=== PATIENT | male | born 1980 | race Caucasian/White ===

== ENCOUNTER 2020-12-07 20:51 | Emergency (ER) | payer OTHER ==
[~2020-12-07 20:51] MED LIST: ALDACTONE100 MG PO; CATAPRES 0.1MG0.1 MG PO; HYDRALAZINE HCL50 MG PO; KLONOPIN TAB 00.5 MG PO; LASIX40 MG PO; MEDROL DOSEPAK 24 MG PO; NEURONTIN 300300 MG PO; NORVASC 5 MG TAB5 MG PO; OMEPRAZOLE40 MG PO; TOPROL XL100 MG PO; TYLENOL 500 MG500 MG PO
[2020-12-07 21:52] LABS: HEMOGLOBIN 8.3 gm/dl (14.0-17.5); RED BLOOD COUNT 2.87 M/UL (4.20-5.50)
== END 2020-12-08 01:13 | disposition home or self-care (01) ==
LOC: ER1 20:51
PROVIDERS: Emergency Medicine
DX: R06.02 Shortness of breath (principal); R60.0 Localized edema; I10 Essential (primary) hypertension; J44.9 Chronic obstructive pulmonary disease, unspecified; F17.200 Nicotine dependence, unspecified, uncomplicated; Z99.2 Dependence on renal dialysis; Z20.822 Contact with and (suspected) exposure to COVID-19
CPT/HCPCS: 0240U; 71045; 80053; 82550; 82553; 83605; 83690; 84484; 85025; 85610; 85730; 93005; 99285